=== PATIENT | female | born 1980 | race Two or more races ===

== ENCOUNTER 2017-01-08 20:17 | Emergency (ER) | payer MEDICAID, OTHER ==
[~2017-01-08] VITALS: Ht 162.6 cm; Wt 61.0 kg
[~2017-01-08 20:17] MED LIST: AMO500 PO; GUAI118L22 PO; PREN1TAB49 PO
[2017-01-08 20:24] VITALS: Ht 162.6 cm; Wt 61.0 kg
[2017-01-08 21:33] LABS: BASOPHILS % 0.4 % (0.0-2.0); EOSINOPHILS # 0.1 10^3/ul (0.0-0.5); EOSINOPHILS % 1.1 % (0.0-7.0); HEMOGLOBIN 12.7 g/dl (12.0-16.0); LYMPHOCYTES # 3.3 10^3/ul (0.8-2.9); LYMPHOCYTES % 29.8 % (15.0-51.0); MEAN CORPUSCULAR HEMOGLOBIN 30.5 pg (29.0-33.0); MEAN CORPUSCULAR HGB CONC 33.4 g/dl (32.0-37.0); MEAN CORPUSCULAR VOLUME 91.1 fl (82.0-101.0); MEAN PLATELET VOLUME 10.7 fl (7.4-10.4); MONOCYTE # 0.6 10^3/ul (0.3-0.9); NEUTROPHIL # 7.1 10^3/ul (1.6-7.5); NEUTROPHILS % 63.3 % (39.0-77.0); PLATELET COUNT 243 10^3/UL (140-415); RED BLOOD COUNT 4.17 10^6/ul (4.20-5.40); RED CELL DISTRIBUTION WIDTH 13.2 % (11.5-14.5); WHITE BLOOD COUNT 11.2 10^3/ul (4.8-10.8)
[2017-01-08 21:45] LABS: ADD UMIC YES; UR ASCORBIC ACID NEGATIVE (NEGATIVE); UR BILIRUBIN (Dip) NEGATIVE (NEGATIVE); UR BLOOD (Dip) NEGATIVE (NEGATIVE); UR CLARITY CLEAR (CLEAR); UR COLOR COLORLESS (YELLOW); UR GLUCOSE (Dip) NEGATIVE (NEGATIVE); UR KETONES (Dip) NEGATIVE (NEGATIVE); UR LEUKOCYTE ESTERASE (Dip) 1+ Leu/ul (NEGATIVE); UR NITRITE (Dip) NEGATIVE (NEGATIVE); UR RBC 0 /HPF (0-5); UR SPECIFIC GRAVITY (Dip) 1.005 (1.003-1.030); UR TOTAL PROTEIN (Dip) NEGATIVE (NEGATIVE); UR UROBILINOGEN (Dip) NEGATIVE (NEGATIVE)
--- NOTE | 2017-01-08 23:25 | RADRPT ---
PROCEDURE: US OB. CLINICAL INDICATION: TECHNIQUE: Transabdominal and transvaginal views of the pelvis are available for review. COMPARISON: There are no similar studies submitted for comparison. FINDINGS: The uterus measures 7.9 x 4.3 x 5.4 cm. There is a single intrauterine gestational sac with mean sac diameter of 8.3 mm, corresponding to an estimated gestational age of 5 weeks 3 days. No definite f etal pole is identified. A yolk sac is present. The right ovary measures 2.4 x 2.5 cm. The left ovary measures 1.4 x 0.7 x 0.9 cm. Doppler flow is noted to the bilateral ovaries. There is a 16 mm cyst / follicle within the right ovary with simple echogenicity. There is no free fluid. IMPRESSION: Single early intrauterine gestational sac of approximately 5 weeks 3 days. pole is not yet se en. Continued follow-up is recommended. Doppler flow to the bilateral ovaries. RPTAT: HIKT .Jaya Milan MD, MD Date Time Electronically viewed and signed by .Jaya Milan MD, on 01/08/2017 23:25 .T/
--- NOTE | 2017-01-08 23:51 | ERD ---
ER Documentation Chief Complaint Date/Time DATE: 01/08/17 TIME: 23:44 Chief Complaint referred by outside clinic 6 wks to r/o ectopic HPI This 36-year-old female presents to emergency department for valuation of . Patient reports high risk , diabetes, 36 years old. 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 Reports that on 01/05 2017 ultrasound in clinic showed intrauterine gestational sac with no yolk sac or pole. Beta hCG on 01 05 was 4352 PR U/mL. Repeat beta hCG on 01/07/2017 was 6941 PR U/mL. She denies any abdominal pain, vaginal bleeding, or discharge. ROS All systems reviewed and are negative except as per history of present illness. Medications Home Meds Active Scripts Guaifenesin/Codeine Phosphate (CHERATUSSIN AC SYRUP) 118 Ml Liquid, 5 ML PO Q6, #120 ML Prov:YVONNE COVARRUBIAS DO 07/18/15 Amoxicillin* (Amoxicillin*) 500 Mg Cap, 500 MG PO TID for 10 Days, CAP Prov:YVONNE COVARRUBIAS DO 07/18/15 Reported Medications Vits W-Ca,Fe,Fa(<1MG) () 1 Tab Tablet, 1 TAB PO 06/14/11 Allergies Allergies: Coded Allergies: No Known Drug Allergy (Verified Allergy, Unknown, 06/08/08) PMhx/Soc Medical and Surgical Hx: pt denies Medical Hx, pt denies Surgical Hx Hx Miscellaneous Medical Probl: Yes (DM) Hx Alcohol Use: No Hx Substance Use: No Hx Tobacco Use: No Smoking Status: Never smoker Physical Exam Vitals Vital Signs Date Time Temp Pulse Resp B/P Pulse Ox O2 Delivery O2 Flow Rate FiO2 01/08/17 20:24 97.8 88 20 124/76 99 Physical Exam Const: Well-nourished well-appearing well-hydrated no acute disc Head: Eyes: Normal Conjunctiva, PERRLA, EOMI ENT: Normal External Ears, Nose and Mouth mucous membranes moist. Neck: Resp: Respirations even and unlabored, no respiratory Cardio: Abd: Soft, non tender, non distended. Normal bowel sounds Skin: Back: Ext: Neur: Awake and alert Psych: Normal Mood and Affect Result Diagram: 01/08/172119 Results 24 hrs Laboratory Tests Test 01/08/17 21:12 01/08/17 21:20 Urine Color COLORLESS Urine Clarity CLEAR Urine pH 7.0 Urine Specific [place] 1.005 Urine Ketones NEGATIVEmg/dL Urine Nitrite NEGATIVEmg/dL Urine Bilirubin NEGATIVEmg/dL Urine Urobilinogen NEGATIVEmg/dL Urine Leukocyte Esterase 1+Sybil/ul Urine Microscopic RBC 0/HPF Urine Microscopic WBC 2/HPF Urine Hemoglobin NEGATIVEmg/dL Urine Glucose NEGATIVEmg/dL Urine Total Protein NEGATIVEmg/dl White Blood Count 11.210^3/ul Red Blood Count 4.1710^6/ul Hemoglobin 12.7g/dl Hematocrit 38.0% Mean Corpuscular Volume 91.1fl Mean Corpuscular Hemoglobin 30.5pg Mean Corpuscular Hemoglobin Concent 33.4g/dl Red Cell Distribution Width 13.2% Platelet Count 54133^3/UL Mean Platelet Volume 10.7fl Neutrophils % 63.3% Lymphocytes % 29.8% Monocytes % 5.0% Eosinophils % 1.1% Basophils % 0.4% Nucleated Red Blood Cells % 0.0/100WBC Neutrophils # 7.110^3/ul Lymphocytes # 3.310^3/ul Monocytes # 0.610^3/ul Eosinophils # 0.110^3/ul Basophils # 0.010^3/ul Nucleated Red Blood Cells # 0.010^3/ul Beta HCG, Quantitative 9554.5mIU/ml Interpretation text CBC shows no evidence of hemorrhage or infection Beta HCG, Quantitative 9554.5mIU/m Urinalysis positive for leukocytosis, no nitrates or microscopic hematuria. Procedures/MDM ROCEDURE: US OB. CLINICAL INDICATION: TECHNIQUE: Transabdominal and transvaginal views of the pelvis are available for review. COMPARISON: There are no similar studies submitted for comparison. FINDINGS: The uterus measures 7.9 x 4.3 x 5.4 cm. There is a single intrauterine gestational sac with mean sac diameter of 8.3 mm, corresponding to an estimated gestational age of 5 weeks 3 days. No definite pole is identified. A yolk sac is present. The right ovary measures 2.4 x 2.5 cm. The left ovary measures 1.4 x 0.7 x 0.9 cm. Doppler flow is noted to the bilateral ovaries. There is a 16 mm cyst / follicle within the right ovary with simple echogenicity. There is no free fluid. IMPRESSION: Single early intrauterine gestational sac of approximately 5 weeks 3 days. pole is not yet seen. Continued follow-up is recommended. Doppler flow to the bilateral ovaries. Electronically viewed and signed by .Jaya Milan MD, on 01/08/2017 23:25 This 36-year--year-old diabetic female was sent to emergency department for reevaluation of a 6.5 week with slow rising beta hCG. Intrauterine without yolk sac or pole on office ultrasound. Differential diagnosis includes an ectopic , and embryonic , early . Beta hCG 9554.5mIU/m consistent with a 5 week , OB ultrasound transabdominal transvaginal read by radiologist see above. Documents single early intrauterine gestational sac of approximately 5 weeks 3 days. pole is not yet seeing. Continue follow-up is recommended, Doppler flow to bilateral ovaries. Right ovarian cyst 16 mm. CBC shows no evidence of acute infection or anemia. Urinalysis documents leukocytosis without nitrates or microscopic hematuria. Patient will be treated for urinary tract infection with Keflex 1 tab p.o. 3 times daily 7 days. Patient instructed to follow-up with gynecology for continued follow-up for high risk . I feel the patient is stable for discharge at this time with outpatient management as discussed. I have discussed results, examination findings, the treatment plan with the patient and family present prior to discharge. Indications for emergent reevaluation, side effects of medication were also discussed. All questions were answered. Patient verbalizes understanding and agrees with plan of care. Departure Diagnosis: Primary Impression: Early stage of Additional Impression: UTI (urinary tract infection) Urinary tract infection type: site unspecified Hematuria presence: without hematuria Qualified Code: N39.0 - Urinary tract infection without hematuria, site unspecified Condition: Good Patient Instructions: Understanding Urinary Tract Infections (UTIs) Additional Instructions: Thank you for for coming to [facility] for your care today. Please ask your nurse or provider if you have questions about your care today and do not leave until all your questions have been answered. Please use any medications given as directed and follow-up with your doctor (or the doctor you were referred to) in the next 2-3 days. If you do not have a primary care doctor you may follow up at the [facility] (listed below). You may also use motrin and tylenol as needed for fever and/or pain unless instructed otherwise by your provider or nurse. Indications for more urgent follow-up have been discussed, but you may return to the Emergency Department at ANY time for any worrisome or worsening symptoms. If you have abdominal pain, please know that no test or exam you received is perfect and you should follow up within 8 hours for continued pain. If you had any imaging studies today, such as an X-Ray or CT Scan, these studies will be reviewed later by a radiologist. You will be called if there are important findings that were not identified today, so make sure the contact information you provided at registration is correct. If you received any narcotic pain control medicine today, such as Vicodin, Morphine or Dilaudid, your coordination and judgment may be affected for a number of hours. Please do not drive or operate heavy machinery, and you may want someone to assist you at home. If you were given a prescription for narcotic medication, be aware that it is very addictive- use sparingly and only if necessary. LEONARDO CHAVEZ Jan 08, 2017 23:51
[2017-01-09] MEDS ORDERED: CEPH-443 PO (01:22)
== END 2017-01-09 01:29 | disposition home or self-care (01) ==
LOC: FTE 20:17
DX: O23.41 Unspecified infection of urinary tract in pregnancy, first trimester (principal); O24.111 Pre-existing type 2 diabetes mellitus, in pregnancy, first trimester; Z3A.00 Weeks of gestation of pregnancy not specified
CPT/HCPCS: 36415; 76801; 76817; 81001; 84702; 85025; Z7502

== ENCOUNTER 2017-01-13 10:57 | Emergency (ER) | END 2017-01-13 13:45 | disposition home or self-care (01) | DX: O20.9 Hemorrhage in early pregnancy, unspecified (principal); O20.0 Threatened abortion; O34.81 Maternal care for other abnormalities of pelvic organs, first trimester; O24.111 Pre-existing type 2 diabetes mellitus, in pregnancy, first trimester; Z3A.01 Less than 8 weeks gestation of pregnancy | CPT/HCPCS: 76801; 76817; 81003; 84702; 85025; 86900; 86901; 87086; Z7502 ==

== ENCOUNTER 2017-03-03 22:03 | Emergency (ER) | payer OTHER ==
[~2017-03-03] VITALS: Ht 142.2 cm; Wt 57.5 kg
[~2017-03-03 22:03] MED LIST changes: -AMO500 PO; +AMOX500C2 PO; +CEPH-443 PO
[2017-03-03 22:21] VITALS: Ht 142.2 cm; Wt 57.5 kg
[2017-03-04] MEDS ORDERED: ACETAMINOPHEN 325 MG TAB PO STA (01:24)
--- NOTE | 2017-03-04 02:25 | RADRPT ---
PROCEDURE: Obstetrical ultrasound, limited. CLINICAL INDICATION: Pelvic pain. TECHNIQUE: Multiple sonographic images of the pelvis were obtained using transabdominal technique . Images were obtained with humphreys scale and color Doppler. The images were reviewed on a PACS works [employer] [facility]. COMPARISON: 01/13/2017. FINDINGS: There is a single living intrauterine gestation with the fetus in a breech and variable presentation . heart tones of 141 beats per minute are identified. The placenta is anterior in location, grade 0. There is normal amniotic fluid volume. There is no evidence of placenta previa or abrupti on. Measurements were made in order to determine age. The results are as follows: BPD =2.42 cm HC =9.14 cm AC =7.30 cm FL =1.25 cm. Estimated gestational age of approximately 14 weeks and 0 days. The estimated date of delivery is 09/02/2017. The EFW = 83 +/- 13 grams. Estimated weight percentage equals 4.5%. IMPRESSION: Single viable intrauterine gestation of approximately 14 weeks and 0 days, with an ultrasound GEORGE of 09/02/2017. .Marcin Gardner MD, MD Date Time Electronically viewed and signed by .Marcin Gardner MD, MD on 03/04/2017 02:25 .T/
--- NOTE | 2017-03-25 15:24 | ERD ---
ER Documentation Chief Complaint Chief Complaint LLQ ab/pelvic pain, LMP 11/22 HPI 36-year-old female who is currently with last menstrual period 2016 presents with left lower quadrant abdominal/pelvic pain. Rates the pain as 5 out of 10. Intermittent. No similar symptoms in past. No aggravating or alleviating factors. Denies bleeding, fever, dysuria, nausea, vomiting, diarrhea, vaginal discharge, foul odor, change in fetus quickening, or identifiable patterns of symptoms. Patient has no other complaints and describes no other associated manifestations. Nursing notes have been reviewed and are consistent with history given. ROS All systems reviewed and are negative except as per history of present illness. Medications Home Meds Active Scripts Cephalexin* (Keflex*) 500 Mg Capsule, 500 MG PO TID for 7 Days, CAP Prov:KATHYLEONARDO 01/09/17 Guaifenesin/Codeine Phosphate (CHERATUSSIN AC SYRUP) 118 Ml Liquid, 5 ML PO Q6, #120 ML Prov:YVONNE COVARRUBIAS DO 07/18/15 Amoxicillin* (Amoxicillin*) 500 Mg Cap, 500 MG PO TID for 10 Days, CAP Prov:YVONNE COVARRUBIAS DO 07/18/15 Reported Medications Vits W-Ca,Fe,Fa(<1MG) () 1 Tab Tablet, 1 TAB PO 06/14/11 Allergies Allergies: Coded Allergies: No Known Drug Allergy (Verified Allergy, Unknown, 06/08/08) PMhx/Soc History of Surgery: Yes (THYROIDECTOMY) Anesthesia Reaction: No Hx Neurological Disorder: No Hx Respiratory Disorders: No Hx Cardiac Disorders: Yes (HTN, DYSLIPIDEMIA) Hx Psychiatric Problems: No Hx Miscellaneous Medical Probl: Yes (DM) Hx Alcohol Use: No Hx Substance Use: No Hx Tobacco Use: No Smoking Status: Never smoker Physical Exam Physical Exam Const: Healthy-appearing. Well-nourished. Well-developed. No acute distress. Abd: Fundus height within normal limits. Soft, non tender, non distended. No guarding, masses. Normal bowel sounds. No McBurney's point tenderness. Head: Normocephalic, Atraumatic. Eyes: Non-injected; No scleral erythema, discharge or foreign body. EOMI and TRAVIS bilaterally. Ears: Normal External Ears, EACs clear, TM normal bilaterally without erythema. Nose: Normal nose without discharge, septal deviation, or sinus tenderness. Oral: No oral edema visualized. Mucous membranes moist and pink. Neck: No cervical lymphadenopathy, masses or goiter palpated. Trachea midline. Supple ~ No meningismus. Pulm: Good air movement in upper and lower respiratory tracts. No dyspnea, stridor, tripoding or drooling. Clear to auscultation bilaterally. Cardio: Regular rate and rhythm; No murmurs, gallops or rubs auscultated. No JVD grossly observed. Radial and posterior tibial pulses 2+ bilaterally. No cyanosis. Capillary refill less than 2 seconds. MS: Normal motor strength, normal tone with gross examination. Skin: No petechiae or rashes. No ulcer, induration, jaundice. Good turgor. Back: No midline, flank or CVA tenderness. Ext: No cyanosis, edema or palpable cord. Normal movement of all extremities grossly observed. Neur: Awake, alert and oriented x3. Neurovascularly intact bilaterally. Psych: Normal Mood and Affect. Results 24 hrs Laboratory Tests Test 03/04/17 01:40 03/04/17 01:53 Urine Color YELLOW Urine Clarity CLOUDY Urine pH 6.0 Urine Specific [place] 1.017 Urine Ketones 2+mg/dL Urine Nitrite NEGATIVEmg/dL Urine Bilirubin NEGATIVEmg/dL Urine Urobilinogen NEGATIVEmg/dL Urine Leukocyte Esterase NEGATIVELeu/ul Urine Microscopic RBC 0/HPF Urine Microscopic WBC 3/HPF Urine Squamous Epithelial Cells FEW/HPF Urine Amorphous Crystals FEW/HPF Urine Bacteria FEW/HPF Urine Mucus FEW/HPF Urine Hemoglobin NEGATIVEmg/dL Urine Glucose NEGATIVEmg/dL Urine Total Protein NEGATIVEmg/dl White Blood Count 9.610^3/ul Red Blood Count 4.1910^6/ul Hemoglobin 12.7g/dl Hematocrit 38.1% Mean Corpuscular Volume 90.9fl Mean Corpuscular Hemoglobin 30.3pg Mean Corpuscular Hemoglobin Concent 33.3g/dl Red Cell Distribution Width 13.3% Platelet Count 28987^3/UL Mean Platelet Volume 11.3fl Neutrophils % 62.7% Lymphocytes % 31.6% Monocytes % 4.7% Eosinophils % 0.5% Basophils % 0.2% Nucleated Red Blood Cells % 0.0/100WBC Neutrophils # 6.010^3/ul Lymphocytes # 3.010^3/ul Monocytes # 0.510^3/ul Eosinophils # 0.110^3/ul Basophils # 0.010^3/ul Nucleated Red Blood Cells # 0.010^3/ul Beta HCG, Quantitative 95827.0mIU/ml Current Medications Medications (Trade) Dose Ordered Sig/Galo Route PRN Reason Start Time Stop Time Status Last Admin Dose Admin Acetaminophen (Tylenol Tab) 650 mg ONCE STAT PO 03/04/17 01:24 03/04/17 01:26 DC 03/04/17 02:10 Procedures/MDM 36-year-old female presenting with the chief complaints of abdominal pain. Currently in second trimester. No previous complications with . Workup was obtained and revealed the following: Beta-hCG 38,405.0 Urinalysis showed few bacteria, amorphous crystals, 2+ ketones. Ultrasound: Single viable intrauterine gestation of approximately 14 weeks and 0 days, with an ultrasound GEORGE of 09/02/2017. Patient was given acetaminophen with adequate relief of symptoms. Most likely diagnosis is urinary tract infection versus abdominal pain during second trimester of unknown etiology. I have low suspicion for placenta previa, infection, blood vessel rupture, PPROM, mechanical obstruction, spontaneous , or other acute abdomen. Patient will be treated with conservative treatment. Presented the case to my attending agrees with the assessment and plan. I have spoke with the patient regarding their condition and future management. They have verbally responded that they understand their status and treatment plan. The patients vitals are stable, and their current condition is appropriate for discharge. The patient will be given discharge instructions with return precautions. Discharge medications: Macrobid Departure Diagnosis: Primary Impression: UTI (urinary tract infection) Urinary tract infection type: site unspecified Hematuria presence: with hematuria Qualified Code: N39.0 - Urinary tract infection with hematuria, site unspecified Additional Impression: Pelvic pain complicating Trimester: second trimester Qualified Code: O26.892 - Pelvic pain affecting in second trimester, antepartum Condition: Stable Patient Instructions: Pelvic Pain In : Unclear (2-3 Trimester) Additional Instructions: Bradley un seguimiento con kovacs PCP dentro de los prximos 1-3 villa para nilesh evaluaci n ms completa y nilesh posible derivacin a un especialista. Devuelva el departamento de emergencia inmediatamente si los sntomas empeoran o cambian. Si tiene alguna pregunta con respecto a los medicamentos, consulte con kovacs farmac utico o con nosotros antes de salir. Si se producen reacciones adversas mientras carmen odalys medicamentos, suspenda el tratamiento y regrese inmediatamente al servicio de urgencias. [place] odalys medicamentos segn las indicaciones y complete el curso completo del tratamiento. Comments DOS: 03/03/2017 DEONTE KOVACS PA-C Mar 25, 2017 15:24
== END 2017-03-04 04:23 | disposition home or self-care (01) ==
LOC: FTE 22:03
DX: O23.42 Unspecified infection of urinary tract in pregnancy, second trimester (principal); R10.2 Pelvic and perineal pain; O10.012 Pre-existing essential hypertension complicating pregnancy, second trimester; O24.112 Pre-existing type 2 diabetes mellitus, in pregnancy, second trimester; E11.9 Type 2 diabetes mellitus without complications; Z3A.14 14 weeks gestation of pregnancy
CPT/HCPCS: 76801; 81001; 84702; 85025; Z7502; Z7610

== ENCOUNTER 2017-08-23 15:54 | Inpatient (IN) | END 2017-08-26 14:19 | disposition home or self-care (01) | DRG 775 ==